=== PATIENT | female | born 1955 ===

== ENCOUNTER → 2023-11-15 10:00 | Outpatient (REF) | payer OTHER, SELFPAY | LOC: HWRAD 10:00 | PROVIDERS: ATTENDING PHYSICIAN Surgery; FAMILY PHYSICIAN Family Medicine | DX: N20.0 Calculus of kidney (principal); Q63.1 Lobulated, fused and horseshoe kidney | CPT/HCPCS: 76775 ==

== ENCOUNTER 2024-01-14 06:20 | Day surgery (SDC) | payer OTHER, SELFPAY ==
[2024-01-09 08:30] VITALS: BMI 27.0
[2024-01-09 09:09] LABS: Hematocrit 43.4 % (37.0-47.0); Hemoglobin 14.7 g/dL (12.0-16.0); Mean Corp Hgb Conc. 33.9 g/dL (33.0-37.0); Mean Corpuscular Hgb 31.2 pg (27.0-31.0); Mean Corpuscular Volume 92.1 fL (81.0-99.0); Platelet Count 327 10^3/uL (130-400); Red Blood Cell Count 4.71 10^6/uL (4.20-5.40); Red Cell Dist. Width 12.4 % (11.5-14.5); White Blood Cell Count 5.2 10^3/uL (4.8-10.8)
[2024-01-09 09:35] LABS: INR 0.91; PT 12.3 Sec (11.4-14.6)
[2024-01-09 09:36] LABS: APTT 31.8 Sec (23.4-35.0)
[2024-01-09 09:52] LABS: Blood Urea Nitrogen 26 mg/dl (7-17); Calcium 9.7 mg/dl (8.4-10.2); Carbon Dioxide 26 mmol/L (22-30); Chloride 103 mmol/L (98-107); Estimated Creatinine Clearance 74 ml/min; Glucose 108 mg/dl (70-99); Potassium 4.3 mmol/L (3.5-5.1); Sodium 139 mmol/L (135-145); eGFR > 60.00
[2024-01-09 11:13] LABS: Urine Albumin 2+ (Neg - Trace); Urine Bilirubin Negative (Negative); Urine Character Slightly Cloudy (Clear); Urine Color Yellow; Urine Glucose Negative (Negative); Urine Ketone Negative (Negative); Urine Leukocyte Trace (Negative); Urine Nitrite Negative (Negative); Urine Occult Blood 4+ (Negative); Urine Specific Gravity 1.025 (<1.030); Urine Urobilinogen Negative (Neg - 1+)
[2024-01-09 11:59] LABS: Urine Bacteria Moderate (Negative); Urine Red Blood Cell 40-50 /HPF (0-2)
[2024-01-14] VITALS (8 sets, daily range): BP systolic 103–146; BP diastolic 63–79; BMI 27.0
[2024-01-14] MEDS: NORMOSOL-R 1000 IV (12:20)
[2024-01-14] MEDS: Pyridium 200 MG PO (15:45)
[2024-01-14] MEDS: DETROL LA 4 MG PO (15:45)
== END 2024-01-14 16:25 | disposition home or self-care (01) ==
LOC: SDS 06:20
PROVIDERS: ATTENDING PHYSICIAN Surgery; FAMILY PHYSICIAN Family Medicine
DX: N20.0 Calculus of kidney (principal); Q63.1 Lobulated, fused and horseshoe kidney; Z87.442 Personal history of urinary calculi
CPT/HCPCS: 52356; 36415; 74018; 76000; 80048; 81003; 81015; 85027; 85610; 85730; 93005; A4300; C1769; C1894; C2617